=== PATIENT | male | born 1950 | race Caucasian/White ===

== ENCOUNTER 2021-04-16 15:08 | Inpatient (IN) | payer BC, MEDICARE ==
[~2021-04-16] VITALS: Ht 203.2 cm; Wt 79.5 kg
[~2021-04-16 15:08] MED LIST: NORCO10T PO; PIOG1TAB9 PO; ZOLP10TA5 PO
[2021-04-16 16:42] LABS: MEAN CORPUSCULAR VOLUME 87.1 FL (78-98)
[2021-04-16 16:44] LABS: BASOPHILS % (AUTO) 0.2 % (0-1); EOSINOPHILS % (AUTO) 0 % (0-6); HEMATOCRIT 49.7 % (42.0-52.0); LYMPHOCYTES # (AUTO) 0.7 X10'3 (1.1-4.8); LYMPHOCYTES % (AUTO) 6.4 % (21-51); MEAN CORPUSCULAR HEMOGLOBIN 29.8 PG (27.0-31.0); MEAN CORPUSCULAR HGB CONC 34.2 g/dL (33.0-36.5); MEAN PLATELET VOLUME 9.1 FL (7.4-10.4); MONOCYTES # (AUTO) 1.4 X10'3 (0-0.9); MONOCYTES % (AUTO) 13.4 % (2-12); NEUTROPHILS # (AUTO) 8.2 X10'3 (1.8-7.7); PLATELET COUNT 292 X10'3 (140-440); RED CELL DISTRIBUTION WIDTH 14.7 % (11.5-14.5); WHITE BLOOD COUNT 10.3 X10'3 (4.5-11.0)
[2021-04-16 16:51] LABS: PARTIAL THROMBOPLASTIN TIME 31 SECONDS (22-32)
[2021-04-16 16:54] LABS: ALANINE AMINOTRANSFERASE 21 U/L (12-78); ALBUMIN 3.2 G/DL (3.4-5.0); ALBUMIN/GLOBULIN RATIO 0.8 (1.1-1.5); ALKALINE PHOSPHATASE 67 IU/L (46-116); ANION GAP 17 (8-16); ASPARTATE AMINO TRANSFERASE 26 U/L (10-37); BILIRUBIN,TOTAL 0.8 MG/DL (0.1-1.0); BLOOD UREA NITROGEN 63 MG/DL (7-18); BUN/CREATININE RATIO 32.6 (5.4-32.0); CALCIUM 8.9 MG/DL (8.5-10.1); CHLORIDE 99 MMOL/L (99-107); CREATININE 1.93 MG/DL (0.60-1.10); GLUCOSE 176 MG/DL (70-104); LIPASE 76 U/L (73-393); POTASSIUM 4.3 MMOL/L (3.5-5.1); SODIUM 135 MMOL/L (135-145); TOTAL CARBON DIOXIDE 18.7 MMOL/L (24-32); TOTAL PROTEIN 7.3 G/DL (6.4-8.2); eGFR 34 ML/MIN
[2021-04-16 17:31] LABS: CLARITY,URINE CLOUDY (Clear); COLOR,URINE BROWN (Yellow); PROTEIN,URINE 300 mg/dl (Neg); UA COLLECTION TYPE FOLEY CATH
[2021-04-16 17:32] LABS: GLUCOSE, URINE 500 mg/dl (Neg); KETONES,URINE 15 mg/dl (Neg); LEUKOCYTE ESTERASE ,URINE TRACE (Neg); NITRITES, URINE NEGATIVE (Neg); OCCULT BLOOD,URINE LARGE (Neg); UROBILINOGEN,URINE 0.2 E.U/dL (0.2-1.0)
[2021-04-16 17:37] LABS: AMORPHOUS URATES 1+; BACTERIA,URINE NONE SEEN /HPF (Neg); MUCUS STRANDS FEW /LPF (Neg); RBC,URINE 20-50 /HPF (0-2); SQUAMOUS EPITHELIAL CELL,UR NONE SEEN /LPF (FEW)
[2021-04-16] MEDS ORDERED: magnesium 2GM in 50ml NS 50 ML IV PRN (19:30)
[2021-04-16] MEDS ORDERED: magnesium 4gm in 100ml NS 100 ML IV PRN (19:30)
[2021-04-16] MEDS ORDERED: potassium Cl 20 mEq SR tablet PO PRN ×2 (19:30)
[2021-04-16] MEDS ORDERED: potassium Cl 40MEQ/1/2NS 520ml 520 ML IV PRN ×2 (19:30)
[2021-04-16] MEDS ORDERED: magnesium Cl slow-release 64mg tablet PO PRN (19:30)
[2021-04-16] MEDS ORDERED: ondansetron/PF 4mg/2ml inj IV PRN (19:30)
[2021-04-16] MEDS ORDERED: normal saline 1000ML IV soln IV ONE (19:35)
[2021-04-16] MEDS ORDERED: CefTRIAXone 2gm/D5W 50ml BAG 50 ML IV ONE (19:35)
[2021-04-16] MEDS ORDERED: ASPI-1397 PO (19:39)
[2021-04-16] MEDS ORDERED: CHOL500050 PO (19:39)
[2021-04-16] MEDS ORDERED: CYAN-51 PO (19:39)
[2021-04-16] MEDS ORDERED: LISI5TAB22 PO (19:39)
[2021-04-16] MEDS ORDERED: GLIM2TAB6 PO (19:39)
[2021-04-16] MEDS ORDERED: GABA600T13 PO (19:39)
[2021-04-16] MEDS ORDERED: EMPA25TA PO (19:39)
[2021-04-16] MEDS ORDERED: GABA300C PO (19:39)
[2021-04-16] MEDS ORDERED: SITA100T11 PO (19:39)
[2021-04-16] MEDS ORDERED: METF-437 PO (19:39)
[2021-04-16] MEDS: K and/or MAG REPLACEMENT MC SCH (20:00)
[2021-04-16] MEDS ORDERED: LIDOcaine 2% 10ml TOPICAL JELLY (Urojet) TP ONE (20:40)
[2021-04-16] MEDS: gabapentin 300mg capsule PO SCH (22:57)
[2021-04-16] MEDS: normal saline 1000ml 1,000 ML IV SCH (23:50)
--- NOTE | 2021-04-16 23:51 | NUR ---
Old catheter was removed. New permanent urine catheter was placed. Patient tolerated procedure with mild discomfort.
[2021-04-17 03:49] LABS: ALBUMIN 2.5 G/DL (3.4-5.0); ANION GAP 12 (8-16); BLOOD UREA NITROGEN 55 MG/DL (7-18); CALCIUM 7.9 MG/DL (8.5-10.1); CHLORIDE 105 MMOL/L (99-107); CREATININE 1.34 MG/DL (0.60-1.10); GLUCOSE 119 MG/DL (70-104); MAGNESIUM 2.7 MG/DL (1.5-2.4); POTASSIUM 3.7 MMOL/L (3.5-5.1); SODIUM 137 MMOL/L (135-145); TOTAL CARBON DIOXIDE 19.8 MMOL/L (24-32); eGFR 52 ML/MIN
[2021-04-17 04:12] LABS: BASOPHILS % (AUTO) 0.4 % (0-1); EOSINOPHILS % (AUTO) 0 % (0-6); HEMATOCRIT 43.4 % (42.0-52.0); HEMOGLOBIN 14.8 g/dl (14.0-17.9); LYMPHOCYTES # (AUTO) 0.9 X10'3 (1.1-4.8); LYMPHOCYTES % (AUTO) 11.9 % (21-51); MEAN CORPUSCULAR HEMOGLOBIN 29.7 PG (27.0-31.0); MEAN CORPUSCULAR VOLUME 87.4 FL (78-98); MEAN PLATELET VOLUME 9.4 FL (7.4-10.4); MONOCYTES # (AUTO) 1.1 X10'3 (0-0.9); MONOCYTES % (AUTO) 14.5 % (2-12); NEUTROPHILS # (AUTO) 5.5 X10'3 (1.8-7.7); NEUTROPHILS % (AUTO) 73.2 % (42-75); PLATELET COUNT 271 X10'3 (140-440); RED BLOOD COUNT 4.97 X10'6 (4.70-6.10); RED CELL DISTRIBUTION WIDTH 14.4 % (11.5-14.5); WHITE BLOOD COUNT 7.6 X10'3 (4.5-11.0)
[2021-04-17] MEDS: normal saline 1000ml 1,000 ML IV SCH ×2 (05:28→10:56)
[2021-04-17] MEDS ORDERED: CefTRIAXone/D5W-Rocephin 1gm 50 ML IV SCH ×2 (08:00→20:00)
[2021-04-17] MEDS: K and/or MAG REPLACEMENT MC SCH ×2 (08:00→20:00)
[2021-04-17] MEDS: methylPREDNISolone sod succ/PF 40mg inj. IV SCH ×2 (08:32→20:19)
[2021-04-17] MEDS: gabapentin 300mg capsule PO SCH ×2 (08:34→20:19)
[2021-04-17] MEDS ORDERED: tamsulosin 0.4mg capsule PO ONE (08:35)
[2021-04-17] MEDS: cholecalciferol (vitamin D3) 1,000 unit (25mcg) tablet PO SCH (08:50)
[2021-04-17] MEDS: cyanocobalamin 500mcg tablet PO SCH (08:50)
--- NOTE | 2021-04-17 10:57 | NUR ---
Pt is awake and alert. +Productive cough, thick yellow sputum. Pt is on Enhanced Precautions due to testing Positive for Covid-19 on 04/11/21.
[2021-04-17] MEDS ORDERED: dextrose ORAL solution 15 GM/59 ML bottle PO PRN ×2 (11:25)
[2021-04-17] MEDS ORDERED: dextrose 50%-water 50ml dispensing syringe IV PRN ×2 (11:25)
[2021-04-17] MEDS ORDERED: glucagon, human recombinant 1mg kit SUBCUT PRN (11:25)
[2021-04-17] MEDS ORDERED: ALBUTEROL INHALER 1 PUFF/90 MCG INHALER IH PRN (11:25)
[2021-04-17] MEDS ORDERED: MESSAGE TO PHARMACY PO ONE (11:25)
[2021-04-17] MEDS ORDERED: insulin Lispro (HumaLOG) vial - multi-dose SQ SCH (11:25)
[2021-04-17 12:08] LABS: HEMOGLOBIN A1C 6.8 % (4.5-6.2)
[2021-04-17] MEDS ORDERED: insulin glargine (Lantus) pen - multi-dose SQ SCH (21:00)
[2021-04-17] MEDS ORDERED: tamsulosin 0.4mg capsule PO SCH (21:00)
--- NOTE | 2021-04-17 22:56 | NUR ---
Alcides marcum in [facility] - 04/17/21 at 2256 by [email or web address] PT REQUESTING MEDS TO SLEEP, I HAVE PAGED DR CALDWELL FOR A PRN OR ONE TIME ORDER
[2021-04-18] MEDS: normal saline 1000ml 1,000 ML IV SCH (01:34)
[2021-04-18] MEDS: K and/or MAG REPLACEMENT MC SCH (07:18)
[2021-04-18] MEDS: methylPREDNISolone sod succ/PF 40mg inj. IV SCH (07:50)
[2021-04-18] MEDS: gabapentin 300mg capsule PO SCH (07:50)
[2021-04-18] MEDS: cholecalciferol (vitamin D3) 1,000 unit (25mcg) tablet PO SCH (07:51)
[2021-04-18] MEDS: cyanocobalamin 500mcg tablet PO SCH (07:51)
[2021-04-18 08:24] LABS: BASOPHILS % (AUTO) 0.3 % (0-1); EOSINOPHILS % (AUTO) 0 % (0-6); LYMPHOCYTES # (AUTO) 0.9 X10'3 (1.1-4.8); MONOCYTES # (AUTO) 0.8 X10'3 (0-0.9)
[2021-04-18 08:25] LABS: HEMATOCRIT 46.1 % (42.0-52.0); HEMOGLOBIN 15.7 g/dl (14.0-17.9); MEAN CORPUSCULAR VOLUME 88.3 FL (78-98); MEAN PLATELET VOLUME 9.6 FL (7.4-10.4); NEUTROPHILS # (AUTO) 4.1 X10'3 (1.8-7.7); NEUTROPHILS % (AUTO) 69.7 % (42-75); PLATELET COUNT 285 X10'3 (140-440); RED BLOOD COUNT 5.22 X10'6 (4.70-6.10); RED CELL DISTRIBUTION WIDTH 14.5 % (11.5-14.5); WHITE BLOOD COUNT 5.8 X10'3 (4.5-11.0)
[2021-04-18 08:55] LABS: ALBUMIN 2.4 G/DL (3.4-5.0); ANION GAP 15 (8-16); BLOOD UREA NITROGEN 42 MG/DL (7-18); BUN/CREATININE RATIO 37.2 (5.4-32.0); CALCIUM 8.5 MG/DL (8.5-10.1); CHLORIDE 106 MMOL/L (99-107); CREATININE 1.13 MG/DL (0.60-1.10); GLUCOSE 171 MG/DL (70-104); MAGNESIUM 2.6 MG/DL (1.5-2.4); POTASSIUM 4.9 MMOL/L (3.5-5.1); SODIUM 143 MMOL/L (135-145); TOTAL CARBON DIOXIDE 21.7 MMOL/L (24-32); eGFR 64 ML/MIN
--- NOTE | 2021-04-18 09:59 | NUR ---
dr smiley at bedside.
[2021-04-18] MEDS ORDERED: ALBU6.7H9 IH (10:25)
[2021-04-18] MEDS ORDERED: PRED10TA PO (10:25)
[2021-04-18] MEDS ORDERED: FLO0.4C PO (10:25)
[2021-04-18] MEDS ORDERED: LEVO500T90 PO (10:25)
[2021-04-18 12:34] VITALS: BP 140/62
[2021-04-18] MEDS ORDERED: lactobacillus rhamnosus 10,000 MMU CELLS/CAPSULE PO SCH (20:00)
== END 2021-04-18 12:34 | disposition home or self-care (01) | DRG 698 ==
LOC: ER 15:09 → ED HOLD 19:35 → UNDOADMIN 19:35 → EDBEDREQ 21:38 → ED HOLD 04-17 11:25
PROVIDERS: ADMIT Internal Medicine; ATTEND Family Medicine
PROC: 0T2BX0Z Change Drainage Device in Bladder, External Approach (ICD-10-PCS; principal; 2021-04-16)
DX: T83.091A Other mechanical complication of indwelling urethral catheter, initial encounter (principal); U07.1 COVID-19; N17.9 Acute kidney failure, unspecified; E87.2 Acidosis; J44.0 Chronic obstructive pulmonary disease with (acute) lower respiratory infection; N13.6 Pyonephrosis; N13.8 Other obstructive and reflux uropathy; N40.1 Benign prostatic hyperplasia with lower urinary tract symptoms; R33.9 Retention of urine, unspecified; N31.9 Neuromuscular dysfunction of bladder, unspecified; I12.9 Hypertensive chronic kidney disease with stage 1 through stage 4 chronic kidney disease, or unspecified chronic kidney disease; N18.9 Chronic kidney disease, unspecified; F17.210 Nicotine dependence, cigarettes, uncomplicated; N30.81 Other cystitis with hematuria; Y73.8 Miscellaneous gastroenterology and urology devices associated with adverse incidents, not elsewhere classified; Y92.89 Other specified places as the place of occurrence of the external cause; Z79.84 Long term (current) use of oral hypoglycemic drugs; Z88.8 Allergy status to other drugs, medicaments and biological substances; Z79.899 Other long term (current) drug therapy
CPT/HCPCS: 36415; 74176; 80048; 80053; 81001; 82948; 83036; 83690; 83735; 85025; 85610; 85730; 87077; 87088; 87186; 94640; 94760; 99285; G0378; J0696; J1815; J2920; J7030

== ENCOUNTER 2021-05-02 13:48 | Emergency (ER) | payer MEDICARE ==
[~2021-05-02] VITALS: Ht 177.8 cm; Wt 75.0 kg
[~2021-05-02 13:48] MED LIST changes: +ALBU6.7H9 IH; +ASPI-1397 PO; +CHOL500050 PO; +CYAN-51 PO; +EMPA25TA PO; +FLO0.4C PO; +GABA300C PO; +GABA600T13 PO; +LEVO500T90 PO; +LISI5TAB22 PO; +METF-437 PO; -NORCO10T PO; -PIOG1TAB9 PO; +PRED10TA PO; +SITA100T11 PO; -ZOLP10TA5 PO
[2021-05-02 13:49] VITALS: BP 158/74
--- NOTE | 2021-05-02 14:00 | NUR ---
CATHETER REMOVED BY HAI OVALLE. REMOVED 8CC OF FLUID FROM THE INTERNAL BALLOON. PT GIVEN URINAL TO PROVIDE URINE BEFORE PT CAN BE DISCHARGED
[2021-05-02] MEDS ORDERED: LIDOcaine 2% 10ml TOPICAL JELLY (Urojet) TP ONE (17:50)
[2021-05-02] MEDS ORDERED: LIDOcaine 2% 10ml TOPICAL JELLY (Urojet) MM ONE (18:05)
[2021-05-02] MEDS ORDERED: NITR100C6 PO (18:43)
== END 2021-05-02 18:40 | disposition home or self-care (01) ==
LOC: ER 13:48
DX: N48.29 Other inflammatory disorders of penis (principal); N17.9 Acute kidney failure, unspecified; Z87.440 Personal history of urinary (tract) infections; Z88.8 Allergy status to other drugs, medicaments and biological substances; Z91.010 Allergy to peanuts; Z79.82 Long term (current) use of aspirin; Z79.2 Long term (current) use of antibiotics; Z79.899 Other long term (current) drug therapy; Z46.6 Encounter for fitting and adjustment of urinary device
CPT/HCPCS: 51702; 99284

== ENCOUNTER 2021-06-11 19:56 | Emergency (ER) | payer MEDICARE ==
[~2021-06-11] VITALS: Ht 177.8 cm; Wt 84.1 kg
[~2021-06-11 19:56] MED LIST changes: -FLO0.4C PO; -LEVO500T90 PO; +NITR100C6 PO
[2021-06-11] MEDS ORDERED: LIDOcaine 2% 10ml TOPICAL JELLY (Urojet) TP ONE (20:40)
[2021-06-11 21:20] VITALS: BP 146/94
== END 2021-06-11 21:23 | disposition home or self-care (01) ==
LOC: ER 19:56
DX: R33.9 Retention of urine, unspecified (principal); Z87.440 Personal history of urinary (tract) infections; Z88.8 Allergy status to other drugs, medicaments and biological substances; Z79.82 Long term (current) use of aspirin; Z79.899 Other long term (current) drug therapy
CPT/HCPCS: 51702; 99284

== ENCOUNTER 2021-09-02 05:22 | Day surgery (SDC) | payer MEDICARE ==
[2021-08-26 14:22] LABS: BASOPHILS % (AUTO) 0.8 % (0-1); EOSINOPHILS # (AUTO) 0.1 X10'3 (0-0.9); EOSINOPHILS % (AUTO) 1.5 % (0-6); LYMPHOCYTES # (AUTO) 1.7 X10'3 (1.1-4.8); LYMPHOCYTES % (AUTO) 27.4 % (21-51); MEAN CORPUSCULAR HEMOGLOBIN 28.8 PG (27.0-31.0); MEAN CORPUSCULAR HGB CONC 33.1 g/dL (33.0-36.5); MEAN CORPUSCULAR VOLUME 87.2 FL (78-98); MEAN PLATELET VOLUME 9.4 FL (7.4-10.4); MONOCYTES # (AUTO) 0.5 X10'3 (0-0.9); NEUTROPHILS # (AUTO) 3.9 X10'3 (1.8-7.7); NEUTROPHILS % (AUTO) 62.3 % (42-75); PRE OP HEMATOCRIT 48.3 % (42.0-52.0); PRE OP PLATELET COUNT 302 X10'3 (140-440); PRE OP PROTIME 10.4 SECONDS (9.0-12.0); RED BLOOD COUNT 5.54 X10'6 (4.70-6.10); RED CELL DISTRIBUTION WIDTH 14.6 % (11.5-14.5)
[2021-08-26 14:23] LABS: ALBUMIN 4.2 G/DL (3.4-5.0); ALBUMIN/GLOBULIN RATIO 1.2 (1.1-1.5); ALKALINE PHOSPHATASE 76 IU/L (46-116); BLOOD UREA NITROGEN 22 MG/DL (7-18); BUN/CREATININE RATIO 20.6 (5.4-32.0); CALCIUM 9.5 MG/DL (8.5-10.1); CHLORIDE 104 MMOL/L (99-107); CREATININE 1.07 MG/DL (0.60-1.10); PRE OP ALT 15 U/L (30-65); PRE OP ANION GAP 14 (8-16); PRE OP AST 14 U/L (10-37); PRE OP BILIRUB, TOTAL 0.4 MG/DL (0.0-1.0); PRE OP GLUCOSE 131 MG/DL (70-104); PRE OP POTASSIUM 4.5 MMOL/L (3.4-5.1); PRE OP SODIUM 144 MMOL/L (135-145); TOTAL CARBON DIOXIDE 26.5 MMOL/L (24-32); TOTAL PROTEIN 7.6 G/DL (6.4-8.2); eGFR 68 ML/MIN
[2021-09-02] VITALS (22 sets, daily range): BP systolic 80–120; BP diastolic 40–85
[~2021-09-02] VITALS: Ht 177.8 cm; Wt 84.6 kg
[~2021-09-02 05:22] MED LIST changes: -ALBU6.7H9 IH; +AMA1T PO; +ATOR20TA66 PO; -EMPA25TA PO; +FINA5TAB11 PO; +FLO0.4C PO; -NITR100C6 PO; +PIOG15TA70 PO; -PRED10TA PO
[2021-09-02] MEDS ORDERED: famotidine 20mg tablet PO ONE (05:30)
[2021-09-02] MEDS ORDERED: albuterol 2.5 MG/3 ML nebule NEB ONE (05:30)
[2021-09-02] MEDS ORDERED: cefazolin/dext.iso 2gm/50ml IV ONE (05:30)
[2021-09-02] MEDS: ringers solution, lacted 1,000 ML IV SCH ×2 (06:11→11:20)
[2021-09-02] MEDS ORDERED: FENTANYL CITRATE/PF 50 MCG/1 ML VIAL ONE (07:10)
[2021-09-02] MEDS ORDERED: ondansetron/PF 4mg/2ml inj IV PRN ×2 (07:10→09:45)
[2021-09-02] MEDS ORDERED: hydrALAZINE 20mg/ml inj. IV PRN (07:10)
[2021-09-02] MEDS ORDERED: morphine 2 MG/ML inj. syringe IV PRN (07:10)
[2021-09-02] MEDS ORDERED: morphine 4 MG/ML inj SYRINge IV PRN (07:10)
[2021-09-02] MEDS ORDERED: fentaNYL/PF 50MCG/1 ML 2ML syringe IV PRN ×2 (07:10)
[2021-09-02] MEDS ORDERED: labetalol 20mg/4ml (5mg/ml) syringe IV PRN (07:10)
[2021-09-02] MEDS ORDERED: MIDAZolam 1 MG/ML 5ML VIAL ONE (07:10)
[2021-09-02] MEDS ORDERED: ringers solution, lacted 1,000 ML IV SCH (07:10)
[2021-09-02] MEDS ORDERED: neomy sulf/polymyxin B sulf. GU irrigation 1ml amp IR ONE (08:02)
[2021-09-02] MEDS ORDERED: ePHEDrine 50MG/ML INJ. ONE (08:35)
--- NOTE | 2021-09-02 09:36 | NUR ---
Received from OR via SURGICAL BED , accompanied by Anesthesiologist ZACKERY and report given by Anesthesiolgist. PATIENT WITH 20G PIV IN LEFT UE RUNNING LR AT 100. DENIES PAIN AT THIS TIME FROM SPINAL ANESTHESIA. PT WITH READ CATHETER ([id number] IRRIGATION). EMPTIED UPON ARRIVAL . PINK IN COLOR. Addendum: 09/02/21 at 0946 by Vinod Beckman RN, RN Amended: Links added.
[2021-09-02] MEDS ORDERED: mag hydrox/Alum hydrox/simeth 30ml oral suspension PO PRN (09:45)
[2021-09-02] MEDS ORDERED: zolpidem 5mg tablet PO PRN (09:45)
[2021-09-02] MEDS ORDERED: oxybutynin 5mg tablet PO PRN (09:45)
[2021-09-02] MEDS ORDERED: proCHLORperazine 10 MG/2 ml inj IV PRN (09:45)
[2021-09-02] MEDS ORDERED: acetaminophen 325mg tablet PO PRN (09:45)
[2021-09-02] MEDS ORDERED: LIDOcaine 2% 10ml TOPICAL JELLY (Urojet) TP ONE (09:45)
[2021-09-02] MEDS: potassium cl 20mEq in 1/2 NS 1,000 ML IV SCH ×3 (09:45→19:40)
[2021-09-02] MEDS ORDERED: HYDROcodone/acetaminophen 10/325mg tab PO PRN (09:45)
[2021-09-02] MEDS ORDERED: dextrose 50%-water 50ml dispensing syringe IV PRN ×2 (09:55)
[2021-09-02] MEDS ORDERED: DEXTROSE 15 GM of carb/4 tabs (each vial/BOTTLE has 4 tablets) PO PRN ×2 (09:55)
[2021-09-02] MEDS ORDERED: insulin Lispro (HumaLOG) vial - multi-dose SQ SCH (09:55)
[2021-09-02] MEDS ORDERED: glucagon, human recombinant 1mg kit SUBCUT PRN (09:55)
[2021-09-02] MEDS ORDERED: MESSAGE TO PHARMACY PO ONE (09:55)
--- NOTE | 2021-09-02 11:26 | NUR ---
PATIENT HAS MET ALL CRITERIA FOR TRANSFER TO THE SURGICAL/ASHU/PCU/ORTHO/ICU FLOOR. VSS. DRESSINGS INTACT. BED LOW, CALL LIGHT PRESENT AND 2 RAILS UP. RN PRESENT TO ACCEPT CARE OF PATIENT AND REPORT HAS BEEN CALLED. ALL QUESTIONS ANSWERED TO ACCEPTING RN. PATIENT VSS. URINE CLEAR WITH A SLIGHT YELLOW TINGE. Addendum: 09/02/21 at 1138 by Vinod Baldwin - PORFIRIO RN Amended: Links added.
--- NOTE | 2021-09-02 11:38 | NUR ---
PT. IN ROOM 344A. ASSUMED CARE. POST-OP VS RUNNING WNL BESIDES BP WHICH IS JUST SLIGHTLY LOW BUT STABLE. PT. APPEARS TO BE SLEEPING WITH NOTICABLE RESPIRATIONS. 96% ON 2lpm. 3 WAY F/C IRRIGATION RUNNING, URINE VERY PALE YELLOW. EMPTIED F/C, RECORDED OUTPUT. NA AWARE PT. ON FLOOR. LR RUNNING @ 100
--- NOTE | 2021-09-02 12:00 | NUR ---
Contacted pharmacy and spoke to pharmacist, let her know there were oral hypoglycemics ordered and insulin. pharmacist states she will page Dr. Thapa to clarify.
--- NOTE | 2021-09-02 13:43 | NUR ---
Contacted pharmacy, spoke with tech. Tech Christiane states no response from MD Thapa yet regarding insulin and oral hypoglycemics ordered yet.
[2021-09-02] MEDS: ceFAZolin inj. 1,000 MG in dextrose 5%-water 50ml 50 ML IV SCH (15:56)
[2021-09-02] MEDS ORDERED: DOCU-148 PO (16:46)
--- NOTE | 2021-09-02 18:33 | NUR ---
Gave report to Hilary MONROY.
[2021-09-02] MEDS: tamsulosin 0.4mg capsule PO SCH (19:40)
[2021-09-02] MEDS: docusate sod 100mg capsule PO SCH (19:40)
[2021-09-02] MEDS ORDERED: glimepiride 1 MG tablet PO SCH (20:00)
[2021-09-02] MEDS ORDERED: metFORMIN 500mg tablet PO SCH (20:00)
[2021-09-02] MEDS ORDERED: gabapentin 300mg capsule PO SCH (21:00)
[2021-09-02] MEDS ORDERED: lisinopril 20mg tablet PO SCH (21:00)
[2021-09-02] MEDS ORDERED: insulin glargine (Lantus) pen - multi-dose SQ SCH (21:00)
[2021-09-02] MEDS ORDERED: atorvastatin 20mg tablet PO SCH (21:00)
[2021-09-03] VITALS: BP 125/59
[2021-09-03] MEDS: ceFAZolin inj. 1,000 MG in dextrose 5%-water 50ml 50 ML IV SCH ×2 (01:04→07:37)
[2021-09-03] MEDS: potassium cl 20mEq in 1/2 NS 1,000 ML IV SCH (03:44)
[2021-09-03 05:00] VITALS: BP 121/68
--- NOTE | 2021-09-03 06:38 | NUR ---
pt resting in chair. denied bladder pain overnight . urine clear this am. ivfs infusing and patent.
[2021-09-03 07:00] VITALS: BP 124/56
[2021-09-03] MEDS ORDERED: pantoprazole 40mg Tablet.DR PO SCH (07:30)
--- NOTE | 2021-09-03 07:35 | NUR ---
Clamped Irrigation to evaluate out put. Urine peachy pink clear with good volume.
[2021-09-03] MEDS: docusate sod 100mg capsule PO SCH (07:37)
[2021-09-03] MEDS: tamsulosin 0.4mg capsule PO SCH (07:37)
[2021-09-03] MEDS ORDERED: gabapentin 300mg capsule PO SCH (08:00)
[2021-09-03] MEDS ORDERED: pioglitazone 15mg tablet PO SCH (08:00)
[2021-09-03] MEDS ORDERED: finasteride 5mg tablet PO SCH (08:00)
[2021-09-03] MEDS ORDERED: linagliptin 5mg tablet PO SCH (08:00)
[2021-09-03 08:41] LABS: BASOPHILS % (AUTO) 0.6 % (0-1); EOSINOPHILS # (AUTO) 0.2 X10'3 (0-0.9); EOSINOPHILS % (AUTO) 2.7 % (0-6); HEMATOCRIT 42.7 % (42.0-52.0); HEMOGLOBIN 14.2 g/dl (14.0-17.9); LYMPHOCYTES # (AUTO) 1.7 X10'3 (1.1-4.8); LYMPHOCYTES % (AUTO) 24.1 % (21-51); MEAN CORPUSCULAR HEMOGLOBIN 29.3 PG (27.0-31.0); MEAN CORPUSCULAR HGB CONC 33.4 g/dL (33.0-36.5); MEAN CORPUSCULAR VOLUME 87.9 FL (78-98); MEAN PLATELET VOLUME 9.5 FL (7.4-10.4); MONOCYTES # (AUTO) 0.7 X10'3 (0-0.9); MONOCYTES % (AUTO) 9.6 % (2-12); NEUTROPHILS # (AUTO) 4.3 X10'3 (1.8-7.7); PLATELET COUNT 212 X10'3 (140-440); RED BLOOD COUNT 4.85 X10'6 (4.70-6.10); RED CELL DISTRIBUTION WIDTH 14.5 % (11.5-14.5); WHITE BLOOD COUNT 6.8 X10'3 (4.5-11.0)
[2021-09-03 08:54] LABS: ALBUMIN 3.2 G/DL (3.4-5.0); ANION GAP 11 (8-16); BLOOD UREA NITROGEN 12 MG/DL (7-18); CALCIUM 8.6 MG/DL (8.5-10.1); CHLORIDE 105 MMOL/L (99-107); GLUCOSE 105 MG/DL (70-104); POTASSIUM 4.5 MMOL/L (3.5-5.1); SODIUM 140 MMOL/L (135-145); TOTAL CARBON DIOXIDE 24.4 MMOL/L (24-32); eGFR 73 ML/MIN
[2021-09-03 11:00] VITALS: BP 110/61
--- NOTE | 2021-09-03 13:36 | NUR ---
Patient being discharged home with daughter. IV taken out. Patient states understanding of discharge instructions and leg bag vs noc ag bag. Patient will follow up with Dr Thapa and call for appt on sunday. No current concerns at this time. I took over patient from Jenifer prior to discharge. All belongings taken from room.
== END 2021-09-03 13:35 | disposition home or self-care (01) ==
LOC: PAS 05:22 → SUR 3N 09:48 → PAS 09-03 13:35
PROVIDERS: ATTEND Urology
DX: N40.1 Benign prostatic hyperplasia with lower urinary tract symptoms (principal); R33.8 Other retention of urine; N41.1 Chronic prostatitis; J44.9 Chronic obstructive pulmonary disease, unspecified; E11.9 Type 2 diabetes mellitus without complications; M19.90 Unspecified osteoarthritis, unspecified site; F17.210 Nicotine dependence, cigarettes, uncomplicated; I10 Essential (primary) hypertension; G47.30 Sleep apnea, unspecified; Z86.16 Personal history of COVID-19; Z20.822 Contact with and (suspected) exposure to COVID-19; Z79.82 Long term (current) use of aspirin; Z79.899 Other long term (current) drug therapy; Z98.890 Other specified postprocedural states; Z96.653 Presence of artificial knee joint, bilateral; Z79.01 Long term (current) use of anticoagulants
CPT/HCPCS: 36415; 52601; 71046; 80048; 80053; 82948; 83036; 85025; 85610; 85730; 86885; 86900; 86901; 87081; 93005; J0690; J2250; J3010; J3480; J3490; J7030; J7060; J7120; U0003; U0005; Z7506; Z7508; Z7512; 88305; A4346; A4355; A4615; G0378; J1815

== ENCOUNTER 2021-10-11 15:41 | Emergency (ER) | payer MEDICARE ==
[~2021-10-11] VITALS: Ht 177.8 cm; Wt 81.8 kg
[~2021-10-11 15:41] MED LIST changes: -ASPI-1397 PO; +DOCU-148 PO
[2021-10-11 15:42] VITALS: BP 143/95
== END 2021-10-11 18:55 | disposition home or self-care (01) ==
LOC: ER 15:41
DX: T85.9XXA Unspecified complication of internal prosthetic device, implant and graft, initial encounter (principal); N17.9 Acute kidney failure, unspecified; Z88.8 Allergy status to other drugs, medicaments and biological substances; Z91.010 Allergy to peanuts; Z79.899 Other long term (current) drug therapy
CPT/HCPCS: 99281